=== PATIENT | male | born 1975 | race Caucasian/White ===

== ENCOUNTER 2017-07-29 17:26 | Emergency (ER) | payer SELFPAY ==
[2017-07-29 19:11] LABS: BASOPHILS 0.2 % (0-2); EOSINOPHILS 0.7 % (0-7); HEMATOCRIT 48.3 % (42.0-54.0); HEMOGLOBIN 17.2 g/dL (13.5-17.5); IMMATURE GRANULOCYTES 0.9 % (0-5); LYMPHOCYTES 20.5 % (15-50); MCH 29.8 pg (26.0-34.0); MCHC 35.6 g/dL (31.0-37.0); MCV 83.7 fL (80.0-100.0); MONOCYTES 5.3 % (2-11); NEUTROPHILS 72.4 % (40-80); PLATELET COUNT 264 10x3/uL (130-400); RBC 5.77 10x6/uL (4.20-6.10); RDW 12.1 % (11.5-14.5); WBC 8.2 10x3/uL (4.8-10.8)
== END 2017-07-29 20:18 | disposition home or self-care (01) ==
LOC: D.ER 17:26
PROVIDERS: Emergency Medicine
DX: S20.211A Contusion of right front wall of thorax, initial encounter (principal); V86.59XA Driver of other special all-terrain or other off-road motor vehicle injured in nontraffic accident, initial encounter; Y93.89 Activity, other specified; Y92.89 Other specified places as the place of occurrence of the external cause; M54.5 Low back pain